=== PATIENT | male | born 1945 | race Caucasian/White ===

== ENCOUNTER → 2016-05-23 | Outpatient (CLI) | payer BC ==
[~2016-05-23] MED LIST: ASPI-232 PO; ESCI1TAB10 PO; MULT-221; NAPR-960; NUTRTAB48; OMEP40CA PO; PANT40TA; RANI300T PO; SIMV20TA2 PO; [UNRECOGNIZED DRUG - CODE]
[2016-05-23 12:45] LABS: PROSTATE SPECIFIC ANTIGEN 0.277 ng/ml (0.000-4.000)
== END | disposition home or self-care (01) ==
LOC: C.LABBFT 09:20
DX: N40.0 Benign prostatic hyperplasia without lower urinary tract symptoms (principal)

== ENCOUNTER → 2016-11-26 | Outpatient (CLI) | payer BC ==
[2016-11-26 12:27] LABS: ALT/SGPT 30 U/L (12-78); AST/SGOT 19 U/L (15-37); BLOOD UREA NITROGEN 29 mg/dl (7-18); BUN/CREATININE RATIO 32.8 (10-20); CALCIUM 8.5 mg/dl (8.5-10.1); CARBON DIOXIDE 29 mmol/L (21-32); CHLORIDE 104 mmol/L (98-107); CREATININE 0.89 mg/dl (0.60-1.40); GLUCOSE 109 mg/dl (70-99); SODIUM 139 mmol/L (136-145)
--- NOTE | 2016-12-10 07:08 | CODING QUERY NO DIAGNOSIS ---
TREATMENT RENDERED WITHOUT A DIAGNOSIS To promote full compliance with coding requirements relating to patient care, physician participation is requested in all cases of welfare adviser uncertainty. Please assist us with providing a diagnosis/symptom for the test(s) below: A diagnosis/symptom was not documented on your Order. A valid diagnosis/symptom is required to bill all insurances. Please remember that we are unable to code a diagnosis of rule out, probable, possible, questionable, or suspected. Tests that require a diagnosis: * ALT/SGPT DIAGNOSIS: * AST/SGOT DIAGNOSIS: * CREATINE PHOSPHOKINASE DIAGNOSIS: * PARTIAL RENAL PROFILE DIAGNOSIS: Provider Signature: Date: Thank you Molly Gavin [employer] Once completed, please kindly fax back to [phone] For questions please call [phone]
== END | disposition home or self-care (01) ==
LOC: C.LABBFT 09:18
DX: E78.5 Hyperlipidemia, unspecified (principal); I10 Essential (primary) hypertension

== ENCOUNTER → 2017-02-25 | Outpatient (CLI) | payer BC ==
[2017-02-25 12:28] LABS: BLOOD UREA NITROGEN 19 mg/dl (7-18); BUN/CREATININE RATIO 20.1 (10-20); CALCIUM 8.9 mg/dl (8.5-10.1); CARBON DIOXIDE 28 mmol/L (21-32); CHLORIDE 103 mmol/L (98-107); CREATININE 0.92 mg/dl (0.60-1.40); GLUCOSE 96 mg/dl (70-99); POTASSIUM 4.5 mmol/L (3.5-5.1); SODIUM 139 mmol/L (136-145)
== END | disposition home or self-care (01) ==
LOC: C.LABBFT 08:55
DX: I10 Essential (primary) hypertension (principal)

== ENCOUNTER → 2017-06-18 | Outpatient (CLI) | payer BC ==
[2017-06-18 13:14] LABS: ALT/SGPT 30 U/L (12-78); AST/SGOT 15 U/L (15-37); BLOOD UREA NITROGEN 21 mg/dl (7-18); CALCIUM 8.8 mg/dl (8.5-10.1); CARBON DIOXIDE 30 mmol/L (21-32); CHOLESTEROL 104 mg/dl (0-200); CREATININE 0.98 mg/dl (0.60-1.40); GLUCOSE 104 mg/dl (70-99); POTASSIUM 4.3 mmol/L (3.5-5.1); SODIUM 137 mmol/L (136-145)
[2017-06-18 13:22] LABS: LDL CHOLESTEROL CALCULATED 41 mg/dl
== END | disposition home or self-care (01) ==
LOC: C.LABBFT 09:29
DX: I10 Essential (primary) hypertension (principal); E78.5 Hyperlipidemia, unspecified

== ENCOUNTER → 2017-06-28 | Outpatient (CLI) | payer BC ==
--- NOTE | 2017-06-28 12:04 | DIAGNOSTIC IMAGING REPORT ---
PAROTID ULTRASOUND CLINICAL HISTORY: PAROTID NODULES COMPARISON STUDY: November 16, 2015 FINDINGS: The right parotid gland measures 48 x 15 x 23 mm. There is a 6 x 5 x 4 mm lower pole nodule. The left parotid gland measures 42 x 12 x 31 mm. There is a 5 x 5 x 2 mm lower pole nodule. IMPRESSION: Small bilateral parotid gland nodules, statistically representing intraparotid lymph nodes Electronically signed by: Hever Gupta M.D. 06/28/2017 12:03 PM Dictated Date/Time: 06/28/2017 12:01 PM
== END | disposition home or self-care (01) ==
LOC: C.ULTR 11:24
DX: D11.0 Benign neoplasm of parotid gland (principal)